=== PATIENT | male | born 1945 | race Caucasian/White ===

== ENCOUNTER 2024-07-07 17:30 | Emergency (ER) | payer MEDICARE, SELFPAY ==
[2024-07-07 17:41] VITALS: BP 144/81
--- NOTE | 2024-07-07 18:44 | ED.GENMED ---
History of Present Illness
General
Chief Complaint: Swelling
Source: patient
Exam Limitations: none
Time Seen by Provider: 07/07/24 18:33
Nursing documentation reviewed up to this point in time: agreed with
History of Present Illness
History of Present Illness:
The patient is a pleasant 78-year-old man who reports that 2 weeks ago he twisted his left knee. He reports at that time, he did not have any swelling or bruising of the left knee. Patient reports he is due to see an orthopedist for a possible
ligament injury in the left knee due to this injury from 2 weeks ago. Patient reports that 3 days ago he noticed discoloration and swelling of his left ankle. He denies any trauma to the ankle. He denies calf pain. He denies a history of DVT and
PE. Patient reports he had an Achilles tendon surgery due to Achilles tendon injury many years ago on the left side.
Past History
Past History
ED Past Medical History: Cancer, HTN and Other (Vertigo, Cataracts)
ED Past Surgical History: Appendectomy, Orthopedic (back surgery), Tonsilectomy and Other (Hernia Bilateral)
Social History
Tobacco: Non-smoker
Alcohol: None
Drug: None
Personal: Other
Living: other
Employment: Retired
Family History
Family History: Other (Noncontributory)
Review of Systems
Review of Systems
Allergies reviewed?: Yes
All Other Systems: ROS reviewed and negative except as documented in HPI and ROS
Constitutional: Reports no symptoms
EENT: Reports no symptoms
Respiratory: Reports no symptoms
Cardiac: Reports no symptoms
ABD/GI: Reports no symptoms
: Reports no symptoms
Musculoskeletal: Reports joint swelling and edema
Skin: Reports other
Neurological: Reports no symptoms
Endocrine: Reports no symptoms
Hematologic/Lymphatic: Reports no symptoms
Psychiatric: Reports no symptoms
Phy Exam
Physical Exam
Physical Exam:
Physical Exam
General: no apparent distress, well-appearing
Neck: supple.
Heart: Strong pulses in bilateral feet
Lungs: no acute respiratory distress.
Abdomen: Soft
Neuro: alert and oriented. no focal neurological deficits. 5 out of 5 strength in lower extremities
Skin: Possible subtle ecchymoses of left lateral ankle. No skin erythema, skin tenderness or skin warmth
Psychiatric: well kept. interactive and cooperative
Extremities: Negative Homans' sign. Strong pulses in bilateral feet. Equal sensation in bilateral lower extremities. Edema of left ankle. No swelling of left foot. Full range of movement of left ankle with minimal
discomfort.
Scores
Heart Failure Risk
Heart Failure Risk Score: Not Applicable
Course
Orders/Labs/Results
Orders:
Orders
07/07/24 18:43
US Periph Venous LOWER Ext LT Urgent
Comment:
Reason For Exam: 3 days of L ankle swelling
Vital Signs
Initial and Last Documented VS:
Initial Vital Signs
Temp Pulse Resp BP Pulse Ox
98.1 F 68 16 144/81 98
07/07/24 17:41 07/07/24 17:41 07/07/24 17:41 07/07/24 17:41 07/07/24 17:41
Last Documented Vital Signs
Temp Pulse Resp BP Pulse Ox
98.1 F 68 16 144/81 98
07/07/24 17:41 07/07/24 17:41 07/07/24 17:41 07/07/24 17:41 07/07/24 17:41
MDM/Problems Addressed
Differential Diagnosis Includes:
Left lower extremity DVT, left ankle gout, edema from not using left leg as much as prior due to injury of left knee
MDM/Problems Addressed:
Patient presents with acute left ankle swelling
Chronic conditions affecting care:
Prior Achilles tendon injury and surgery on left side
Acute Exacerbation and/or Progression of Chronic Illness:
Patient is acutely hypertensive, likely due to anxiety being in the ED
Acute Exacerbation and/or Progression of Chronic Illness: HTN
*Radiology
Radiology exam reviewed: preliminary read by ED provider (Ankle x-ray reviewed by me. No acute fracture) and radiology read reviewed
*Pulse Oximetry
Patient hypoxic: no
*EKG
Interpreted by ED Provider?: NA
*Research Physicist Interpretation
Rate: Research Physicist- N/A
*Critical Care Note
Total Time (30-74mins, 75-104mins- exclusive of procedures): Not Applicable
Data Reviewed
Review of Other/Old Records Reveals: Radiology Studies (Left foot x-ray reviewed from February 2021 which showed calcaneal osteophyte and osteoarthritis as well as calcified Achilles tendon)
Patient Management
Social determinants of health affecting care: Living situation and Strong social support
Escalation/DeEscalation of care consider admission/obs:
Patient remains well and comfortable appearing. There is no skin redness to suggest cellulitis. There is no ankle pain to suggest septic ankle joint. It is unlikely to be gout given that it is not painful.
ED Attending Note
-
Portions of this chart may have been created with voice recognition software.� Occasional wrong word or��sound alike� substitutions may have occurred due to the inherent limitations of voice recognition software.
Discharge Plan
Departure
Patient Disposition: Home (Routine Discharge)
Date of Disposition: 07/07/24
Time of Disposition: 20:08
Patient with high blood pressure during this ER visit?: Yes
Condition: Good
Covid-19: Not Applicable
Discharge Problem:
Left ankle swelling
Instructions: Swollen Joints, BLOOD PRESSURE
Prescriptions:
No Action
aspirin 81 MG tablet,delayed release (DR/EC)
1 tab PO DAILY
acetaminophen 325 MG tablet
650 mg PO Q4HPRN PRN (Reason: pain)
hydrochlorothiazide 12.5 MG tablet
12.5 mg PO Q48H
brimonidine-timolol [Combigan] 1 DROP drops
1 drp ophthalmic (eye) BID
bromfenac [BromSite] 5 ML drops
1 drp OP DAILY
Patient Comments:
right eye. Done February.
Paxlovid 300 mg (150 mg x 2)-100 mg tablets,dose pack
See Rx Instructions .ROUTE .COMPLEX Qty: 30 0RF
Rx Instructions:
take TWO 150 mg tablets of nirmatrelvir with ONE 100 mg tablet of ritonavir twice daily for 5 days
doxycycline hyclate 100 mg tablet
100 mg PO BID 21 Days Qty: 42 0RF
atovaquone 750 mg/5 mL suspension
750 mg PO BID 10 Days Qty: 100 0RF
azithromycin [Zithromax] 250 mg tablet
250 mg PO DAILY Qty: 11 0RF
Rx Instructions:
500mg PO qd x 1, then 250mg PO qd x 9d
Referrals:
Jem Beaulieu MD [Family Provider] -
Activity Restrictions/Additional Instructions:
Please follow-up with your primary care doctor within 3 to 4 days.
Avoid excessive standing and walking, especially over the next 72 hours. Please try to elevate your left leg and ice your left ankle several times a day. Return for any significant pain or fever.
The ultrasound done today in the emergency department shows no sign of blood clot in the left leg
Discharge Date and Time
Print Language: BAHAMIAN
[2024-07-07 20:00] VITALS: BP 135/76
== END 2024-07-07 20:20 | disposition home or self-care (01) ==
LOC: EMR 17:30
PROVIDERS: EMERGENCY PHYSICIAN Emergency Medicine; FAMILY PHYSICIAN Internal Medicine
DX: R22.42 Localized swelling, mass and lump, left lower limb (principal); I10 Essential (primary) hypertension
CPT/HCPCS: 99284; 93971